=== PATIENT | female | born 1970 | race Two or more races ===

== ENCOUNTER 2021-08-28 11:13 | Outpatient (CLI) | payer OTHER | END 2021-08-28 11:15 | disposition home or self-care (01) | LOC: NUCLEAR 11:13 | PROVIDERS: ATTEND Internal Medicine Cardiovascular Disease | DX: R06.02 Shortness of breath (principal); R07.89 Other chest pain; R00.2 Palpitations; R00.0 Tachycardia, unspecified; E03.9 Hypothyroidism, unspecified; I87.2 Venous insufficiency (chronic) (peripheral) ==

== ENCOUNTER 2023-06-05 10:50 | Emergency (ER) | payer OTHER ==
[~2023-06-05] VITALS: Ht 157.5 cm; Wt 82.6 kg
[2023-06-05] MEDS ORDERED: SYNTHROID125 MCG (11:47)
[2023-06-05] MEDS ORDERED: METOPROLOL SUCC25 MG (11:47)
[2023-06-05] MEDS ORDERED: LOSARTAN POTASS25 MG (11:47)
== END 2023-06-05 14:36 | disposition home or self-care (01) ==
LOC: ER 10:50
DX: S61.211A Laceration without foreign body of left index finger without damage to nail, initial encounter (principal); X58.XXXA Exposure to other specified factors, initial encounter; Y93.9 Activity, unspecified; Y92.9 Unspecified place or not applicable; Y99.9 Unspecified external cause status

== ENCOUNTER 2024-12-11 10:25 | Outpatient (CLI) | payer OTHER ==
[~2024-12-11 10:25] MED LIST: LOSARTAN POTASS25 MG; METOPROLOL SUCC25 MG; SYNTHROID125 MCG
== END 2024-12-11 10:30 | disposition home or self-care (01) ==
LOC: SONOGRAMA 10:25
PROVIDERS: ATTEND Pathology Anatomic Pathology
DX: C73 Malignant neoplasm of thyroid gland (principal); D34 Benign neoplasm of thyroid gland